=== PATIENT | female | born 1990 | race Caucasian/White ===

== ENCOUNTER 2018-06-02 19:01 | Inpatient (IN) | payer OTHER ==
[~2018-06-02] VITALS: Ht 162.6 cm; Wt 71.7 kg
[~2018-06-02 19:01] MED LIST: AZITHROMYCIN 2250 MG; IBUPROFEN 400400 M1; PENICILLIN V P500 MG PO; ULTRAM 50MG TAB50 MG PO
[2018-06-02 19:03] VITALS: BP 119/72
[2018-06-02] MEDS ORDERED: AZO STANDARD95 MG (19:15)
[2018-06-02] MEDS ORDERED: FLEXERIL (19:17)
[2018-06-02] MEDS ORDERED: CYSTEX TABLET1 EAC1 (19:17)
[2018-06-02 19:54] LABS: HEMATOCRIT 33.7 % (37.0-47.0); HEMOGLOBIN 10.6 gm/dL (12.0-15.0); MCH 23.5 pg (26.0-34.0); MCHC 31.5 g/dL (28.0-37.0); MCV 74.6 fL (80.0-100.0); MPV 8.1 fl. (7.2-11.1); NUCLEATED RBCS 0 /100WBC; PLATELET COUNT* 357 thou/uL (150-400); RBC 4.52 mil/uL (4.20-5.00); RDW-CV 16.3 % (10.5-14.5); WBC 16.7 thou/uL (4.0-11.0)
[2018-06-02 20:06] LABS: CALCIUM 8.4 mg/dL (8.5-10.1); CREATININE 1.1 mg/dL (0.6-1.3); POTASSIUM 3.7 mmol/L (3.5-5.1); TOTAL BILIRUBIN 0.3 mg/dL (<0.1-1.0); TOTAL PROTEIN 7.5 g/dL (6.4-8.2)
[2018-06-02 20:17] LABS: ABSOLUTE LYMPHOCYTES 1.5 thou/uL (0.8-5.3); ABSOLUTE MONOCYTES 0.8 thou/uL (0.0-1.2); ABSOLUTE NEUTROPHILS 14.4 thou/uL (1.6-8.1); ANISOCYTOSIS 1+; PLATELET ESTIMATE ADEQUATE
[2018-06-02 20:18] LABS: MICROCYTES 1+
[2018-06-02 21:59] LABS: URINE BILIRUBIN NEGATIVE (Negative); URINE BLOOD 1+ (Negative); URINE CLARITY CLEAR; URINE COLOR YELLOW; URINE GLUCOSE-RANDOM NEGATIVE (Negative); URINE KETONES TRACE (Negative); URINE LEUKOCYTES-REFLEX 1+ (Negative); URINE NITRITE-REFLEX POSITIVE (Negative); URINE PROTEIN TRACE (Negative); URINE SPECIFIC GRAVITY <= 1.005 (1.005-1.030); URINE UROBILINOGEN 0.2 E.U./dl (0.2-1.0)
[2018-06-02 22:05] LABS: SQUAMOUS >10 Many /LPF (0-3)
[2018-06-02 22:06] LABS: BACTERIA-REFLEX >30 Many /HPF (None Seen); CASTS None Seen /LPF (None Seen); URINE WBC-REFLEX >25 Many /HPF (0-5)
[2018-06-02 22:07] LABS: CRYSTALS None Seen /LPF (None Seen); MUCUS None Seen strn/LPF (None Seen); URINE RBC 0-2 Rare /HPF (0-2)
[2018-06-02 22:08] LABS: AMP/METHAMP POSITIVE (Negative); BARBITURATES Negative (Negative); BENZODIAZEPINES Negative (Negative); COCAINE Negative (Negative); METHADONE Negative (Negative); OPIATES POSITIVE (Negative); PCP Negative (Negative); THC Negative (Negative)
[2018-06-02 22:18] LABS: NT-PRO BRAIN NAT PEPTIDE 62 pg/mL (<300); TROPONIN-I LEVEL <0.06 ng/mL (<0.06)
[2018-06-02 23:06] VITALS: BP 101/51
[2018-06-03 01:30] LABS: INFLUENZA A ANTIGEN None Detected (None Detect); INFLUENZA B ANTIGEN None Detected (None Detect)
[2018-06-03 04:51] VITALS: BP 105/61
--- NOTE | 2018-06-03 05:12 | NUR ---
ASSISTED PT TO THE BATHROOM, AMBULATED WITH STANDBY ASSIST; PT WITH COMPLAINT OF PAIN RECEIVED IV MORPHINE, TYLENOL FOR FEVER; PT TRANSFERRED TO HOSPITAL BED , DRINK AND CALL LIGHT WITHIN REACH; SEE BOARDING ASSESSMENT
--- NOTE | 2018-06-03 09:09 | NUR ---
PT BP LOW. TELEMETRY PLACED ON PT. NORMAL SINUS AT 87. BP CHANGED TO CYCLE EVERY 15 MINUTES; BP 90/47. PT REPORTS BP USUALLY RUNS LOW. PT ALERT, AWAKE AND TALKING WITH STAFF. PT DROWSY. ASKED FOR WATER AND FOOD. MEAL TRAY GIVEN TO PT.
[2018-06-03 10:40] VITALS: BP 93/60
--- NOTE | 2018-06-03 10:40 | NUR ---
PT LAYING IN BED, HOB ELEVATED. EYES CLOSED, RESPIRATIONS EVEN AND UNLABORED. CALL LIGHT WITHIN REACH. VITAL SIGNS STABLE. LEFT FA IV SALINE LOCKED. RIGHT AC STILL INFUSING IV FLUIDS.
--- NOTE | 2018-06-03 11:37 | EKG ---
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
[2018-06-03 13:50] VITALS: BP 95/54
[2018-06-03 15:00] VITALS: BP 107/59
[2018-06-03 22:00] VITALS: BP 96/46
[2018-06-04] VITALS: BP 88/49
--- NOTE | 2018-06-04 01:37 | NUR ---
PT TRANSFERED TO ROOM 204 FROM [facility]. LETHARGIC AROUSABLE. NS AT 100MLS/HR. RESTING QUIETLY SINCE TRANSFER.
[2018-06-04 04:00] VITALS: BP 105/66
--- NOTE | 2018-06-04 04:43 | NUR ---
PT WOKE UP TO USE BR. SHE STATED SHE WAS IN PAIN 10/01. MORPHINE GIVEN.
--- NOTE | 2018-06-04 05:26 | NUR ---
PT CALLED OUT REQUESTING ANXIETY MEDICATION. PT STATED SHE FELT ANXIOUS AND IT MAKES HER PAIN WORSE. LORAZEPAM IVP GIVEN. PT RESTING QUIETLY IN ROOM.
--- NOTE | 2018-06-04 06:32 | NUR ---
REPORT GIVEN TO TELEMETRY NURSE AND PATIENT TRANSFERRED AT APPROXIMATELY 2029 WITH BELONGINGS. PATIENT SLEEPING AT TIME OF TRANSFER TO UNIT.
[2018-06-04 08:00] VITALS: BP 98/56
--- NOTE | 2018-06-04 08:00 | NUR ---
ASSUMED PT CARE AT 0700, PT LYING IN BED, CALL LIGHT IN REACH. 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 PT IS IRRITABLE AND REQUESTING TO BE DISCHARGED. NICOTENE PATCH ORDERED AND PT EDUCATED ON IMPORTANCE OF COMPLETING MEDS. WILL CONT TO MONITOR THROUGH OUT SHIFT.
[2018-06-04 12:00] VITALS: BP 107/61
[2018-06-04 12:56] LABS: ABSOLUTE LYMPHOCYTES 0.5 thou/uL (0.8-5.3); ABSOLUTE MONOCYTES 0.4 thou/uL (0.0-1.2); BASOPHILS 0.1 %; HEMATOCRIT 30.6 % (37.0-47.0); HEMOGLOBIN 9.6 gm/dL (12.0-15.0); LYMPHOCYTES 3.4 %; MCH 23.6 pg (26.0-34.0); MCHC 31.4 g/dL (28.0-37.0); MCV 75.3 fL (80.0-100.0); MONOCYTES 2.8 %; MPV 8.7 fl. (7.2-11.1); NUCLEATED RBCS 0 /100WBC; PLATELET COUNT* 397 thou/uL (150-400); POLYS 93.7 %; RBC 4.07 mil/uL (4.20-5.00); RDW-CV 16.3 % (10.5-14.5)
[2018-06-04 12:58] LABS: CALCIUM 8.5 mg/dL (8.5-10.1); CREATININE 0.9 mg/dL (0.6-1.3); POTASSIUM 4.3 mmol/L (3.5-5.1)
--- NOTE | 2018-06-04 14:02 | NUR ---
Pt is A&O. Resides at home with her . No DME. No hx of HH or SNF. Goal is home at [place]. Following.
[2018-06-04 16:24] VITALS: BP 95/56
--- NOTE | 2018-06-04 19:00 | NUR ---
PT SITTING UP IN CHAIR, FAMILY MEMBERS AT BEDSIDE. PT C/O ANXIETY, PRN ATIVAN ADMINISTERED DIRECTED. 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 CONT EDUCATION GIVEN ON IMPORTANCE OF HOSPITAL STAY AND MEDICATIONS. PT REQUESTING 2ND NICOTENE PATCH D/T BEING A "HEAVY SMOKER". EDUCATED PT, ONLY ALLOWED 1 DAILY. PT REQUESTS TO GO OFF OF UNIT FOR A "BREAK", EDUCATED PT ON NOT LEAVING FLOOR BUT ABLE TO WALK UNIT. HOURLY ROUNDING COMPLETED.
[2018-06-04 20:00] VITALS: BP 94/43
[2018-06-05] VITALS: BP 114/71
--- NOTE | 2018-06-05 03:55 | NUR ---
ASSUMED PT CARE @ 1930. PT WAS A+O X4. WAS SLEEPY DURING VITALS, THEN WAS BEING INAPPROPRIATE AND HYPERSEXUAL TOWARDS VISITORS AND STAFF DURING MEDPASS. THEN PT WAS TEARFUL AND CRYING AND TRYING TO SANKET HER SISTER DOWN THE HALLWAY AND GET ON THE ELEVATOR 15 MIN LATER. WAS ABLE TO KEEP PT FROM GETTING ON THE ELEVATOR AND BACK TO HER ROOM. SECURITY WAS CALLED TO RETRIEVE PT'S PHONE FROM HER SISTER. PT WAS GIVEN HER ANXIETY MEDICATION. ABLE TO CALM DOWN AND GO TO SLEEP. PT HAS BEEN RESTING MOST OF SHIFT SINCE. CALL LIGHT IN REACH. HOURLY ROUNDING FOR SAFETY.
[2018-06-05 04:00] VITALS: BP 80/48
[2018-06-05 04:56] LABS: ABSOLUTE EOSINOPHILS 0.1 thou/uL (0.0-0.7); ABSOLUTE LYMPHOCYTES 2.2 thou/uL (0.8-5.3); ABSOLUTE MONOCYTES 0.7 thou/uL (0.0-1.2); ABSOLUTE NEUTROPHILS 12.8 thou/uL (1.6-8.1); BASOPHILS 0.2 %; EOSINOPHILS 0.3 %; HEMATOCRIT 27.2 % (37.0-47.0); HEMOGLOBIN 8.7 gm/dL (12.0-15.0); LYMPHOCYTES 14.1 %; MCH 23.7 pg (26.0-34.0); MCHC 31.9 g/dL (28.0-37.0); MCV 74.1 fL (80.0-100.0); MONOCYTES 4.5 %; MPV 8.5 fl. (7.2-11.1); NUCLEATED RBCS 0 /100WBC; PLATELET COUNT* 365 thou/uL (150-400); POLYS 80.9 %; RBC 3.66 mil/uL (4.20-5.00); RDW-CV 16.3 % (10.5-14.5); WBC 15.9 thou/uL (4.0-11.0)
[2018-06-05 05:38] LABS: CALCIUM 7.9 mg/dL (8.5-10.1); CREATININE 0.6 mg/dL (0.6-1.3)
[2018-06-05 05:40] LABS: POTASSIUM 3.2 mmol/L (3.5-5.1)
[2018-06-05 05:49] LABS: % SATURATION 9 % (20-39); IRON 26 ug/dL (50-175)
[2018-06-05 12:00] VITALS: BP 105/65
[2018-06-05 16:00] VITALS: BP 122/80
--- NOTE | 2018-06-05 18:45 | NUR ---
ASSUMED PT CARE AT 0700, PT LYING IN BED, CALL LIGHT IN REACH. VSS, REMAINS ON RA, MED SURG STATUS. PT DENIES ANY SOA/PAIN BUT CONT TO EXPRESS DESIRE TO GO HOME. PT EDUCATED ON IMPORTANCE OF COMPLETING MEDICATION AND REST, PT STATES UNDERSTANDING AND IS WILLING TO STAY. HOURLY ROUNDING COMPLETED, UP AD RAKAN.
[2018-06-06 00:03] VITALS: BP 98/56
[2018-06-06 04:00] VITALS: BP 99/60
--- NOTE | 2018-06-06 04:12 | NUR ---
PATIENT WALKED TO NURSING STATION FROM ROOM, EATING PIZZA. SHOWED RN HER ARM WHERE IV WAS NO LONGER IN PLACE AND STATED "I RIPPED IT OUT IN MY SLEEP AGAIN". PATIENT REQUESTED WARM BLANKET AND WENT BACK TO ROOM.
--- NOTE | 2018-06-06 05:18 | NUR ---
ASSUMED PATIENT CARE AT 1900. PATIENT SLEEPING ON BED WITH S/O IN BED WITH HER. PSYCHIATRIC ATTENDANT COMPLETED DOCUMENTED. PATIENT STATED THAT SHE WANTED TO GO HOME AND RN INFORMED PATIENT THAT AMA PAPERWORK WAS READY WHENEVER SHE WAS. PATIENT THEN PRETENDED THAT SHE DID NOT KNOW HER NAME. PATIENT WAS ABLE TO STATE NAME AND BIRTHDAY WITHOUT HESITATION FOR MED PASS SHORTLY THEREAFTER. PATIENT REPEATEDLY BENDS ARM WITH AN IV IN THE AC, SEE NURSING NOTE. PATIENT VERY RUDE TO CARE STAFF WITH 0000 0400 VITALS
[2018-06-06 05:20] LABS: HEMOGLOBIN 9.9 gm/dL (12.0-15.0); MCH 23.5 pg (26.0-34.0); MCHC 31.9 g/dL (28.0-37.0); MCV 73.6 fL (80.0-100.0); MPV 8.3 fl. (7.2-11.1); RBC 4.21 mil/uL (4.20-5.00); RDW-CV 16.2 % (10.5-14.5); WBC 8.7 thou/uL (4.0-11.0)
[2018-06-06 05:33] LABS: CALCIUM 8.3 mg/dL (8.5-10.1); CREATININE 0.8 mg/dL (0.6-1.3); POTASSIUM 3.9 mmol/L (3.5-5.1)
[2018-06-06] MEDS ORDERED: KEFLEX500 M1 PO (09:15)
--- NOTE | 2018-06-06 09:15 | NUR ---
ASSUMED PT CARE AT 0700, PT REQUESTING TO BE DISCHARGED OR SHE WILL "LEAVE ON HER OWN". THIS NURSE ADVISED PT MESSAGE WOULD BE SENT TO DR TO ASK FOR DC ORDERS, THAT IF SHE WAS UNABLE TO WAIT, SHE WOULD NEED TO LEAVE AMA. PT AGREED TO WAIT A SHORT TIME UNTIL DC ORDERS GIVEN. IV REMOVED, DISCHARGE INSTRUCTIONS AND PRESCRIPTIONS GIVEN. PT LEFT WITH NURSING STAFF AND PARENTS AMBULATING.
[2018-06-06 09:36] VITALS: BP 99/60
[2018-06-06 09:53] VITALS: BP 99/60
== END 2018-06-06 10:10 | disposition home or self-care (01) | DRG 872 ==
LOC: M.ERS 19:01 → M.TBA-ER 21:44 → M.ORTHSURG 06-03 14:05 → M.2W 06-03 21:20
PROVIDERS: Emergency Medicine; Family Medicine; ADMIT Internal Medicine
DX: A41.9 Sepsis, unspecified organism (principal); N12 Tubulo-interstitial nephritis, not specified as acute or chronic; F19.10 Other psychoactive substance abuse, uncomplicated; D50.9 Iron deficiency anemia, unspecified; E87.6 Hypokalemia; E83.42 Hypomagnesemia; F17.210 Nicotine dependence, cigarettes, uncomplicated; Z79.899 Other long term (current) drug therapy